=== PATIENT | male | born 1945 | race Native Hawaiian/Other Pacific Islander ===

== ENCOUNTER 2019-01-17 09:47 | Emergency (ER) | payer OTHER ==
[~2019-01-17] VITALS: Ht 165.1 cm; Wt 70.3 kg
[2019-01-17 10:15] LABS: PLATELET COUNT 251 K/uL (142-355)
[2019-01-17 11:10] VITALS: BP 180/110; TEMP 98.9
== END 2019-01-17 11:10 | disposition home or self-care (01) ==
LOC: ED 09:47
PROVIDERS: Emergency Medicine
DX: S20.212A Contusion of left front wall of thorax, initial encounter (principal); W19.XXXA Unspecified fall, initial encounter; Y93.89 Activity, other specified; Y92.89 Other specified places as the place of occurrence of the external cause
CPT/HCPCS: 82550; 82553; 84484; 85027; 93005; 96372; 99283; J1885